=== PATIENT | male | born 1970 | race Caucasian/White ===

== ENCOUNTER 2016-06-01 00:49 | Emergency (ER) | payer OTHER ==
[2016-06-01 02:19] VITALS: BP 108/77; PULSE 98; TEMP 97.7; BMI 25.8
--- NOTE | 2016-06-01 02:52 | PDOC ---
[id number] 06/01/16 02:17 06/01/16 02:17 06/01/16 02:17 06/01/16 02:17 06/01/16 02:17 Medical Decision Making - Medical Decision Making 06/01/16 02:51 agree with care from [employer]MENT[employer] ADVISOR [place] *DC/Admit/Observation/Transfer Diagnosis at time of Disposition: Upper back pain - Discharge Dispostion Disposition: HOME - Prescriptions Prescriptions: Cyclobenzaprine HCl [Flexeril -] 10 mg PO TID PRN #21 tablet PRN Reason: Back Pain Ibuprofen [Motrin -] 600 mg PO Q6H PRN #20 tablet PRN Reason: Severe Pain Oxycodone HCl/Acetaminophen [Percocet 5-325 mg Tablet] 1 tab PO Q6H PRN #16 tablet MDD 4 tabs PRN Reason: Severe Pain - Referrals Referrals: Raul Paez MD [Staff Physician] - - Patient Instructions Printed Discharge Instructions: Back Pain (Alternative Therapy), DI for Low Back Pain Additional Instructions: FOLLOW UP WITH DR. PAEZ (ORTHOPEDIC) REGARDING BACK PAIN. CALL TO SCHEDULE APPOINTMENT. TAKE MEDICATIONS PRESCRIBED. TAKE WARM SHOWERS, GET REST AND FOLLOW UP WITH YOUR DOCTOR. Print Language: BURUNDIAN
[2016-06-01] MEDS ORDERED: IBUPROFEN 600 MG TABLET (FP) PO ONE ×2 (03:05→03:19)
[2016-06-01] MEDS ORDERED: OXYCODONE/APAP 5/325MG COMBO TABLET PO ONE (03:05)
--- NOTE | 2016-06-01 03:11 | PDOC ---
History of Present Illness - General Chief Complaint: Back Pain Stated Complaint: back pain Time Seen by Provider: 06/01/16 02:46 History Source: Patient Exam Limitations: No Limitations - History of Present Illness Initial Comments: 06/01/16 03:05 45yo Male patient presents to ED c/o upper back pain while at work. 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 Denies any other complaints at this time. Timing/Duration: other (Just prior to arrival) Severity: mild Modifying Factors: improves with: medication, rest Associated Symptoms: denies: denies symptoms, chest pain, cough, diaphoresis, fever/chills, headaches, loss of appetite, malaise, nausea/vomiting, rash, seizure, shortness of breath, syncope, weakness, other Aspirin Received prior to arrival: No: no aspirin today, unknown, 81 mg x 1, 81 mg x 2, 81 mg x 3, 81 mg x 4, 325 mg x 1, provided at home, provided by EMS, provided by ED Past History - Travel Traveled outside of the country in the last 30 days: No Close contact w/someone who was outside of country & ill: No - Past Medical History Allergies/Adverse Reactions: Allergies Allergy/AdvReac Type Severity Reaction Status Date / Time No Known Allergies Allergy Verified 06/01/16 02:16 Home Medications: Ambulatory Orders Cyclobenzaprine HCl [Flexeril -] 10 mg PO TID PRN #21 tablet 06/01/16 Ibuprofen [Motrin -] 600 mg PO Q6H PRN #20 tablet 06/01/16 Oxycodone HCl/Acetaminophen [Percocet 5-325 mg Tablet] 1 tab PO Q6H PRN #16 tablet MDD 4 tabs 06/01/16 Other medical history: denies - Psycho/Social/Smoking Cessation Hx Anxiety: No Suicidal Ideation: No Smoking History: Never smoked Have you smoked in the past 12 months: No Number of Cigarettes Smoked Daily: 0 Cigars Per Day: 0 Information on smoking cessation initiated: No Hx Alcohol Use: No Drug/Substance Use Hx: No Review of Systems - Review of Systems Constitutional: No: Chills, Fever HEENTM: No: Blurred Vision, Double Vision Respiratory: No: Cough, Orthopnea, Shortness of Breath, Stridor, Wheezing Cardiac (ROS): No: Chest Pain, Lightheadedness, Palpitations, Chest Tightness ABD/GI: No: Abdominal Distended, Constipated, Diarrhea, Nausea, Poor Appetite, Poor Fluid Intake, Vomiting, Abdominal cramping : No: Burning, Dysuria, Flank Pain, Hematuria Musculoskeletal: Yes: Back Pain Integumentary: No: Bruising, Erythema, Rash, Sweating Neurological: No: Headache, Numbness, Seizure, Tingling, Tremors, Weakness, Dizziness Psychiatric: No: Anxiety, Depression, Stressors All Other Systems: Reviewed and Negative *Physical Exam - Vital Signs Last Vital Signs Temp Pulse Resp BP Pulse Ox 97.7 F 98 H 20 108/77 99 06/01/16 02:06/01/16 02:06/01/16 02:06/01/16 02:06/01/16 02:17 - Physical Exam General Appearance: Yes: Nourished, Appropriately Dressed, Mild Distress. No: Apparent Distress Neck: positive: Trachea midline, Supple Respiratory/Chest: positive: Lungs Clear, Normal Breath Sounds Cardiovascular: positive: Regular Rhythm, Regular Rate Gastrointestinal/Abdominal: positive: Normal Bowel Sounds, Soft Lymphatic: negative: Adenopathy Musculoskeletal: positive: Normal Inspection. 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 NML intact, Fully Oriented, Alert, Normal Mood/ Affect, Normal Response, Motor Strength 5/5 *DC/Admit/Observation/Transfer Diagnosis at time of Disposition: Upper back pain - Discharge Dispostion Disposition: HOME Condition at time of disposition: Good Admit: No - Prescriptions Prescriptions: Cyclobenzaprine HCl [Flexeril -] 10 mg PO TID PRN #21 tablet PRN Reason: Back Pain Ibuprofen [Motrin -] 600 mg PO Q6H PRN #20 tablet PRN Reason: Severe Pain Oxycodone HCl/Acetaminophen [Percocet 5-325 mg Tablet] 1 tab PO Q6H PRN #16 tablet MDD 4 tabs PRN Reason: Severe Pain - Referrals Referrals: Raul Paez MD [Staff Physician] - - Patient Instructions Printed Discharge Instructions: DI for Low Back Pain, Back Pain (Alternative Therapy) Additional Instructions: FOLLOW UP WITH DR. PAEZ (ORTHOPEDIC) REGARDING BACK PAIN. CALL TO SCHEDULE APPOINTMENT. TAKE MEDICATIONS PRESCRIBED. TAKE WARM SHOWERS, GET REST AND FOLLOW UP WITH YOUR DOCTOR. Print Language: [place]UE[place]
[2016-06-01] MEDS ORDERED: OXYCODONE/APAP 5/325MG COMBO TABLET ONE (03:19)
== END 2016-06-01 03:27 | disposition home or self-care (01) ==
LOC: JER 00:49
DX: M54.6 Pain in thoracic spine (principal); X50.0XXA Overexertion from strenuous movement or load, initial encounter; X02.8XXA Other exposure to controlled fire in building or structure, initial encounter; Y93.89 Activity, other specified; Y92.89 Other specified places as the place of occurrence of the external cause; Y99.0 Civilian activity done for income or pay
CPT/HCPCS: 99281-25